=== PATIENT | male | born 1990 | race African-American/Black ===

== ENCOUNTER 2017-02-07 11:09 | Emergency (ER) | payer SELFPAY ==
[~2017-02-07 11:09] MED LIST: ADVA100A INH; ALBU0.086 INH; ALBU1AER INH; DUONI INH; FLUT0.05 TOP; LORA10TA7 PO; MOME17I; MONT10TA2 PO; VENTAER INH
[2017-02-07 11:11] VITALS: BP 150/83; PULSE 106; RESP 16; TEMP 97.8; O2SAT 93
== END 2017-02-07 17:05 | disposition left against medical advice (07) ==
LOC: NETRI 11:09
DX: Z53.21 Procedure and treatment not carried out due to patient leaving prior to being seen by health care provider (principal)
CPT/HCPCS: 99281